=== PATIENT | female | born 1990 | race Caucasian/White ===

== ENCOUNTER → 2018-12-09 | Outpatient (REF) | payer SELFPAY | LOC: M LAB LCGH 11:43 | PROVIDERS: ATTEND Obstetrics & Gynecology | DX: Z12.4 Encounter for screening for malignant neoplasm of cervix (principal) ==

== ENCOUNTER → 2020-07-01 | Outpatient (CLI) | payer OTHER ==
--- NOTE | 2020-07-01 18:09 | REP ---
INDICATION: BETTINA DIAG MAMMO/BETTINA NIPPLE DISCHARGE AND PAIN. Yellowish, white milky, or clear discharge intermittently since cessation of 2 years ago. COMPARISON: No comparison breast imaging. TECHNIQUE: Bilateral CC and MLO view(s) were taken. 3 D Tomography was obtained. This mammogram was interpreted with the aid of an FDA-approved computer-aided detection system. FINDINGS: Scattered fibroglandular elements are noted bilaterally. No dominant density is seen in subareolar region on either side or elsewhere in either breast. No mass, architectural distortion, micro calcific grouping or worrisome skin changes seen. The Volpara volumetric breast density pattern is B. Bilateral targeted sonography: Bilateral sub areolar sonography is carried out. Heterogeneous fibroglandular background echotexture is seen. No dilated ducts, cyst, or mass is seen by ultrasound. IMPRESSION: BIRADS/ACR category 1-bilateral breast sonography and mammographic findings. This patient's Tyrer-Cuzick lifetime breast cancer risk assessment score is 12.5%. The patient states she had a clinical breast exam in June of 2020. The patient letter being requested is M2. RECOMMENDATION: Repeat screening mammography recommended 1 year (for women over 40). <Electronically signed by Rancho Garland > 07/01/20 [id number]
== END ==
LOC: M WHC 13:23
PROVIDERS: ATTEND Student in an Organized Health Care Education/Training Program
DX: N64.4 Mastodynia (principal); N64.52 Nipple discharge

== ENCOUNTER → 2021-02-07 | Outpatient (CLI) | payer OTHER ==
[2021-02-07 17:02] LABS: BLOOD UREA NITROGEN 16 MG/DL (7-18); CALCIUM LEVEL 8.9 MG/DL (8.5-10.1); CARBON DIOXIDE LEVEL 27 MEQ/L (21-32); CHLORIDE LEVEL 108 MEQ/L (98-107); CREATININE FOR GFR 0.85 MG/DL (0.55-1.30); GLOMERULAR FILTRATION RATE > 60.0 (>60); GLUCOSE, FASTING 85 MG/DL (70-100); POTASSIUM SERUM 4.4 MEQ/L (3.5-5.1); PROLACTIN 1.2 NG/ML; SODIUM LEVEL 141 MEQ/L (136-145)
== END ==
LOC: M LAB 15:32
PROVIDERS: ATTEND Internal Medicine Endocrinology, Diabetes & Metabolism
DX: O92.6 Galactorrhea (principal)

== ENCOUNTER → 2021-08-24 | Outpatient (CLI) | payer OTHER ==
[~2021-08-24] MED LIST: PROHANCE 279.3MG/ML 5ML VIAL ONE
== END ==
LOC: M PLAIMG 15:09
PROVIDERS: ATTEND Nurse Practitioner Family
DX: D49.7 Neoplasm of unspecified behavior of endocrine glands and other parts of nervous system (principal)